=== PATIENT | male | born 1960 | race African-American/Black ===

== ENCOUNTER 2024-03-26 18:01 | Emergency (ER) | payer MEDICAID ==
[~2024-03-26] VITALS: Ht 175.3 cm; Wt 66.0 kg
[2024-03-26 18:06] VITALS: TEMP 98.5; O2SAT 99
[2024-03-26] MEDS ORDERED: CEPH500C2 MT (20:26)
[2024-03-26] MEDS ORDERED: DOXY100T2 MT (20:26)
[2024-03-26] MEDS ORDERED: IBUP-2030 MT (20:26)
[2024-03-26 20:34] VITALS: BP 143/95; PULSE 58; RESP 16
[2024-03-26] MEDS: KETOROLAC 30MG/ML VIAL IM ONE (20:36)
== END 2024-03-26 20:41 | disposition home or self-care (01) ==
LOC: ER 18:01
DX: L03.116 Cellulitis of left lower limb (principal)
CPT/HCPCS: 99285; 93971; 96372; J1885

== ENCOUNTER 2024-03-29 09:39 | Emergency (ER) | payer MEDICAID ==
[~2024-03-29] VITALS: Ht 175.3 cm; Wt 66.0 kg
[~2024-03-29 09:39] MED LIST: CEPH500C2 MT; DOXY100T2 MT; IBUP-2030 MT
[2024-03-29 09:43] VITALS: BP 148/93; PULSE 74; RESP 18; TEMP 98.2; O2SAT 99
[2024-03-29] MEDS ORDERED: ONDA4TAB11 PO (10:22)
== END 2024-03-29 10:37 | disposition home or self-care (01) ==
LOC: ER 09:39
DX: L03.116 Cellulitis of left lower limb (principal); L02.416 Cutaneous abscess of left lower limb; R11.2 Nausea with vomiting, unspecified
CPT/HCPCS: 99283

== ENCOUNTER 2025-06-18 20:58 | Emergency (ER) | payer MEDICAID ==
[~2025-06-18] VITALS: Ht 170.2 cm; Wt 84.0 kg
[~2025-06-18 20:58] MED LIST changes: +ONDA-239 PO
[2025-06-18 21:13] VITALS: BP 166/98; PULSE 68; RESP 18; TEMP 36.6; O2SAT 99
[2025-06-18] MEDS ORDERED: KETOROLAC 15MG/ML VIAL IM ONE (21:30)
[2025-06-18] MEDS ORDERED: ONDANSETRON 4MG ODT PO ONE (21:30)
== END 2025-06-18 23:57 | disposition left against medical advice (07) ==
LOC: ER 20:58
DX: R10.31 Right lower quadrant pain (principal); R11.2 Nausea with vomiting, unspecified; I10 Essential (primary) hypertension
CPT/HCPCS: 93005; 99283